=== PATIENT | male | born 1960 | race Caucasian/White ===

== ENCOUNTER → 2018-05-19 09:00 | Outpatient (CLI) | payer BC ==
[2009-12-23 12:00] VITALS: BMI 15.7
--- NOTE | 2018-05-24 14:39 | ST ---
PATIENT:LAVON PAYTON MEDICAL RECORD: [id number] SEX: M LOCATION:[facility] ORDER #: ADMISSION DATE: 05/19/18 AGE OF PATIENT: 57 REFERRING PHYSICIAN: INTERPRETING PHYSICIAN: CORDELIA BLANDON MD DATE OF SERVICE: 05/19/2018 PROCEDURE: Nuclear stress test. INDICATION: Chest pain, abnormal ECG. TECHNIQUE: He was exercised on standard Humberto protocol for 10 minutes achieving greater than 85% max target heart rate response with 31 mCi of sestamibi injected at peak stress, 10 mCi were used previously for rest images. FINDINGS: Gated SPECT reveals a preserved ejection fraction of 57% with good wall motioning and thickening and brightening throughout all segments. SPECT imaging Cardiolite is used as myocardial perfusion agent. There are definite reversible changes inferiorly. This includes the basal, mid, apical inferior segments. The degree of reversibility is [id number]. The amount of myocardium involved is moderate. OVERALL IMPRESSION: 1. This is an abnormal nuclear stress test with definite reversibility inferiorly. 2. Gated SPECT reveals a preserved ejection fraction greater than 50% in this patient with ongoing symptomatology. The current scan does suggest the presence of hemodynamically significant coronary artery disease with ongoing symptomatology. We would proceed with coronary angiography as followup study. TRANSINT:[id number] Voice Confirmation ID: [id number] DOCUMENT ID: [id number] CORDELIA BLANDON MD at 1439 CC: MIS AHUMADA [id number] DICTATION DATE: 05/19/181913 BOX CAR BRACER: 05/20/18 1402 DEP CLI 05/19/18 [place] [id number] [place] [id number]
== END | disposition home or self-care (01) ==
LOC: D.HCCARDIO 09:00
PROVIDERS: ATTEND Internal Medicine Interventional Cardiology
DX: R07.9 Chest pain, unspecified (principal)

== ENCOUNTER 2018-06-01 12:09 | Outpatient (CLI) | payer BC ==
--- NOTE | ~2018-06-01 | HEMODYNAMI ---
PATIENT:LAVON PAYTON MEDICAL RECORD: [id number] : 64 LOCATION:D[facility] ADMISSION DATE: 06/01/18 Generatedon:06/01/201814:57 Patient name: LAVON PAYTON Patient #: [id number] SSN: : 1960 Date of study: 06/01/2018 Page: Of Hemodynamic Procedure Report Patient Data Patient Demographics Procedure consent was obtained First Name: LAVON Gender: Male Last Name: TATA : 1960 Middle Initial: A Age: 57 year(s) Patient #: [id number] Race: Unknown Additional ID: [id number] Contact details Address: [address] [place] [address] State: [place] City: [place] Zip code: [address] Past Medical History Allergies: No known allergies Admission Admission Data Admission Date: 06/01/2018 Admission Time: 12:09 Height (in.): 73 BSA: 1.84 (m2) Height (cm.): 185.42 BMI: 18.32 (kg/m2) Weight (lbs.): 138.89 Weight (kg.): 63 Lab Results Lab Result Date: 06/01/2018 Lab Result Time: 0:00 Biochemistry Name Units Result Min Max BUN mg/dl 12 --(-*--)-- 7 18 Creatinine mg/dl 1.1 --(--*-)-- 0.6 1.3 CBC Name Units Result Min Max Hematocrit % 45.6 --(-*--)-- 42 54 Hemoglobin g/dl 15.5 --(-*--)-- 13.5 17.5 Procedure Procedure Types Cath Procedure Diagnostic Procedure C [facility] w/Coronaries Procedure Description Procedure Date Procedure Date: 06/01/2018 Procedure Start Time: 14:46 Procedure End Time: 14:56 Procedure Staff Name Function Lamberto Gillis MD Performing Physician Bella Hernandez RT Monitor Kip Finnegan RT Scrub Jens Fong RT Clinical Pharmacy Manager Yvan Guevara RN Nurse Procedure Data Cath Procedure Fluoroscopy Diagnostic fluoroscopy Total fluoroscopy Time: 1.6 time: 1.6 min min Diagnostic fluoroscopy Total fluoroscopy dose: 171 dose: 171 mGy mGy Contrast Material Contrast Material Type Amount (ml) Isovue 300 51 Entry Location Entry Primary Successful Side Size Upsize Upsize Entry Closure Hopkins ccessful Closure Location (Fr) 1 (Fr) 2 (Fr) Remarks Device Remarks Radial Right 6 Fr Mechanical artery Short Compression Estimated blood loss: 5 ml Diagnostic catheters Device Type Used For End Catheter Placement DIAGNOSTIC Jelm 110cm 5 Procedure Fr catheter ([id number]) Procedure Complications No complications Procedure Medications Medication Administration Route Dosage 0.9% NaCl I.V. 100 ml/hr Oxygen etCO2 Nasal cannula 2 l/min Heparin Flush Bag added to field 2 bags (1000units/500ml NS) Lidocaine 2% added to field 20 Radial Cocktail added to field 1 syringe (Verapomil 2mg/Nitro 400mcg/Heparin 1500units) Versed I.V. 2 mg Fentanyl I.V. 100 mcg Radial Cocktail I.A. 1 syringe (Verapomil 2mg/Nitro 400mcg/Heparin 1500units) Hemodynamics Rest BSA: 1.84 (m2) HGB: 15.5 (g/dl) O2 Consumption: Estimated: 210.63 (ml/min) O2 Co nsumption indexed: Estimated:114.47 (ml/min/m) Heart Rate: 59 (bpm) Pressure Samples Time Site Value (mmHg) Purpose Heart Use Rate(bpm) 14:51 LV 113/1,7 EDP 71 Gradients Valve Time Site Site Mean SEP/DFP Peak To Heart Use 1 2 (mmHg) (sec/min) Peak Rate (mmHg) (bpm) Aortic 14:51 LV AO 78 Snapshots Pre Cath Intra NCS Post Cath Vital Signs Time Heart Resp SPO2 etCO2 NIBP (mmHg) Rhythm Pain Sedation Rate (ipm) (%) (mmHg) Status Level (bpm) 14:36:13 57 14 100 30.4 145/77(124) NSR 0 (11) 10(A) , No pain 14:40:27 56 13 99 20.8 120/74(91) NSR 0 (11) 10(A) , No pain 14:44:33 58 12 97 19.3 112/71(85) NSR 0 (11) 10(A) , No pain 14:48:35 61 13 96 9.6 116/74(91) NSR 0 (11) 10(A) , No pain 14:52:40 69 12 97 33.4 107/66(81) NSR 0 (11) 9(A) , No pain 14:56:42 65 11 98 28.2 106/65(88) NSR 0 (11) 9(A) , No pain Medications Time Medication Route Dose Verified Delivered Reason Notes Effectiveness by by 14:35:19 0.9% NaCl I.V. 100 Yvan Yvan Per ml/hr Ismael Guevara physician RN RN 14:35:29 Oxygen etCO2 2 l/min Yvan Yvan for low 02 Nasal Lorigan Clarissaigan sats cannula RN RN 14:35:38 Heparin Flush added 2 bags Yvan Yvan used for Bag to Lorigan Lorigan procedure (1000units/500ml field RN RN NS) 14:35:54 Lidocaine 2% added 20ml Yvan Yvan for local to vial Lorigan Lorigan anesthetic RN RN 14:36:04 Radial Cocktail added 1 Yvan Yvan used for (Verapomil to syringe Lorigan Lorigan procedure 2mg/Nitro RN RN 400mcg/Heparin 1500units) 14:46:36 Versed I.V. 2 mg Yvan Yvan for sedation Ismael Guevara RN RN 14:46:46 Fentanyl I.V. 100 mcg Yvan Yvan for sedation Ismael Guevara RN RN 14:49:53 Radial Cocktail I.A. 1 Yvan Lamberto for (Verapomil syringe Lorigan Carlin vasodilation 2mg/Nitro MANSOOR PAYNE 400mcg/Heparin 1500units) Procedure Log Time Note 14:15:35 Jens Fong RT(R) sent for patient. Start room use. 14:17:24 Signed procedure consent form obtained from patient. 14:17:25 Diagnostic Cath status Elective 14:17:26 Time tracking: Regular hours (M-F 7:00 - 5:00) 14:17:29 Plan of Care:Hemodynamics will remain stable., Cardiac rhythm will remain stable., Comfort level will be maintained., Respiratory function will remain adequate., Patient/ family verbilizes understanding of procedure., Procedure tolerated without complication., Recovers from procedure without complications.. 14:18:42 H&P Date Dictated: 05/12/2018 Within 30 days and on chart., H&P Addendum completed by physician on day of procedure. (MUST COMPLETE FOR ALL OUTPATIENTS). 14:18:46 Patient allergic to No known allergies 14:18:59 Patient Height : 73 inches 14:19:02 Patient Weight : 138.89 lbs 14:25:37 Patient received from Pre/Post Procedure Room to CCL 2 Alert and oriented. Tansferred to table in Supine position. 14:25:40 Warm blankets applied, and forrest hugger turned on for patient comfort. 14:25:41 Correct patient and procedure confirmed by team. 14:25:41 ECG and BP/O2 sat monitors applied to patient. 14:35:01 Vital chart was started 14:35:02 Baseline sample Acquired. 14:35:08 Rhythm: sinus bradycardia 14:35:09 Full Disclosure recording started 14:35:09 Pre-procedure instructions explained to patient. 14:35:10 Pre-op teaching completed and patient verbalized understanding. 14:35:12 Family in patients room. 14:35:13 Patient NPO since Midnight. 14:35:15 Is patient on blood thinner?No 14:35:17 Patient diabetic? No. 14:35:19 0.9% NaCl 100 ml/hr I.V. was administered by Yvan Guevara RN; Per physician; 14:35:22 Previous problem with sedation/anesthesia? No ? 14:35:23 Snore? No 14:35:24 Sleep apnea? No 14:35:24 Deviated septum? No 14:35:29 Oxygen 2 l/min etCO2 Nasal cannula was administered by Yvan Guevara RN; for low 02 sats; 14:35:31 Sticks out tongue? Yes 14:35:33 Airway obstruction? No ? 14:35:38 Heparin Flush Bag (1000units/500ml NS) 2 bags added to field was administered by Yvan Guevara RN; used for procedure; 14:35:38 Dentures? Yes OUT 14:35:42 Modified Nixon's test Ulnar < 7 seconds 14:35:45 Patient pain scale 0/10 ?. 14:35:47 IV patent on arrival in left hand with 0.9% NaCl at [facility]. 14:35:54 Lidocaine 2% 20ml vial added to field was administered by Yvan Guevara RN; for local anesthetic; 14:36:04 Radial Cocktail (Verapomil 2mg/Nitro 400mcg/Heparin 1500units) 1 syringe added to field was administered by Yvan Guevara RN; used for procedure; 14:36:50 Lab Result : BUN 12 mg/dl 14:36:50 Lab Result : Creatinine 1.1 mg/dl 14:36:50 Lab Result : Hemoglobin 15.5 g/dl 14:36:50 Lab Result : Hematocrit 45.6 % 14:36:53 Lab results completed and on chart. 14:36:57 Right Radial & Right Groin area was prepped with chlora-prep and draped in sterile fashion 14:36:58 Alarms reviewed by R. N. 14:36:59 Sharps counted by scrub and verified by R.N. 14:37:01 Use device set Radial Dx or PCI 14:37:02 ACIST Syringe (43326) opened to sterile field. 14:37:19 Bag Decanter (2002S) opened to sterile field. 14:37:45 ACIST Hand Control (11724) opened to sterile field. 14:37:46 ACIST Manifold (34788) opened to sterile field. 14:37:46 Tegaderm 4 x 4 (1626W) opened to sterile field. 14:37:47 Medline Cath Pack ([id number]) opened to sterile field. 14:37:48 DIAGNOSTIC WIRE .035 260cm J wire (674056) opened to sterile field. 14:37:49 MBrace Wrist Support ([id number]) opened to sterile field. 14:37:50 SHEATH 6FR Slender (801060) opened to sterile field. 14:42:57 --------ALL STOP TIME OUT------ 14:42:57 Final Timeout: patient, procedure, and site verified with staff and physician. All members of the team are in agreement. 14:42:59 Right Radial & Right Groin site verified by team. 14:43:02 Maximum allowable Isovue 300 dose 300ml. Physician notified. (300ml for normal creatinines. For patients with creatinine of 1.7 or higher multiply weight(kg) x 5 divided by creatinine.) 14:43:06 Fire Safety Assessment: A--An alcohol-based skin anteseptic being used preoperatively., C--Open oxygen or nitrous oxide is being used., D--An ESU, laser, or fiber-optic light is being used. 14:43:11 Physical assessment completed. ASA score P 2 - A patient with mild systemic disease as per Lamberto Gillis MD. 14:43:14 Sedation plan: IV Moderate Sedation Medication:Versed, Fentanyl 14:45:51 Procedure started. 14:46:33 Local anesthetic to right radial artery with Lidocaine 2% by Lamberto Gillis MD.INITIAL ACCESS ONLY 14:46:36 Versed 2 mg I.V. was administered by Yvan Guevara RN; for sedation; 14:46:36 Zero performed for pressure channel P1 14:46:46 Fentanyl 100 mcg I.V. was administered by Yvan Guevara RN; for sedation; 14:49:19 A 6 Fr Short sheath was inserted into the Right Radial artery 14:49:53 Radial Cocktail (Verapomil 2mg/Nitro 400mcg/Heparin 1500units) 1 syringe I.A. was administered by Lamberto Gillis MD; for vasodilation; 14:49:56 A DIAGNOSTIC Jelm 110cm 5 Fr catheter (496249) was advanced over the wire and used for Procedure. 14:50:40 LV gram done using FRIEDMAN 14:50:42 Injector settings: Ml/sec: 5, Volume: 15, 14:51:10 LV hemodynamics recorded. 14:51:25 EF : 55 % 14:51:51 RCA angiography performed. 14:53:29 LCA angiography performed. 14:54:20 Catheter removed. 14:54:26 TR BAND Standard ([id number]) opened to sterile field. 14:54:33 Procedure ended.(Physican Out) 14:54:59 Fluoroscopy time 01.60 minutes. 14:55:03 Fluoroscopy dose: 171 mGy 14:55:03 Flurop Dose total: 171 14:55:07 Contrast amount:Isovue 300 51ml. 14:55:14 Sheath removed intact; hemostasis achieved with Mechanical Compression to the Right Radial artery. 14:55:18 Sharps counted by scrub and verified by R.N. 14:55:20 TR band inflated with 10cc of air. 14:55:51 Post-procedure physical assessment completed. ASA score P 2 - A patient with mild systemic disease as per Lamberto Gillis MD. 14:55:54 Post procedure rhythm: sinus rhythm 14:55:55 Estimated blood loss: 5 ml 14:55:57 Post procedure instruction explained to patient.Patient verbalizes understanding. 14:55:57 Patient needs reinforcement of post procedure teaching. 14:56:23 Procedure and supply charges have been captured, reviewed, submitted and are correct. 14:56:25 Procedure Complication : No complications 14:56:29 Vital chart was stopped 14:56:30 See physician's report for complete and final results. 14:56:34 Report given to Pre/Post Procedure Room. 14:56:37 Patient transfered to Pre/Post Procedure Room with Bed. 14:56:42 Procedure ended. 14:56:42 Full Disclosure recording stopped 14:56:48 End room use (Document Last) Device Usage Item Name Manufacture Quantity Catalog Hospital Part Current Minimal Lot# / Number Charge Number Stock Stock Serial# Code ACIST Acist 1 44922 874275 953485 709982 20 Syringe Medical (67366) Systems Inc Bag Microtek 1 2001S 562063 30982 620503 5 Decanter Medical Inc. () ACIST Hand Acist 1 59315 870298 744265 366672 5 Control Medical (42922) Systems Inc ACIST Acist 1 90294 759753 042994 812855 5 Manifold Medical (31650) Systems Inc Tegaderm 4 3M 1 1626W 397016 703395 564460 5 x 4 (1626W) Medline Medline 1 [id number] 201792 09365 815057 5 Cath Pack ([id number]) DIAGNOSTIC St Gigi 1 658612 590921 132985 514798 30 WIRE .035 260cm J wire (464474) MBrace Advanced 1 140-0250-00 099141 12347 889520 5 Wrist Vascular Support Dynamics ([id number]) SHEATH 6FR Terumo 1 [id number] 977187 725581 430668 5 Slender (80-1060) DIAGNOSTIC Terumo 1 40-5933 672275 916354 371892 5 Jelm 110cm 5 Fr catheter (758127) TR BAND Terumo 1 [id number] 934823 778176 129117 40 Standard ([id number]) Signature Audit [place] Stage Time Signature Unsigned Intra-Procedure 06/01/2018 Bella Hernandez 2:57:40 PM RT(R) Signatures Monitor : Bella Hernandez Signature : RT Date : Time : [address] [place] [address]
[2018-06-01 12:32] VITALS: BP 92/73; BMI 17.2
[2018-06-01 12:55] LABS: BASOPHILS 0.2 % (0-2); EOSINOPHILS 1.8 % (0-7); HEMATOCRIT 45.6 % (42.0-54.0); HEMOGLOBIN 15.5 g/dL (13.5-17.5); IMMATURE GRANULOCYTES 0.1 % (0-5); LYMPHOCYTES 30.2 % (15-50); MCH 29.9 pg (26.0-34.0); MEAN PLATELET VOLUME 10.9 fL (7.4-10.4); MONOCYTES 7.5 % (2-11); NEUTROPHILS 60.2 % (40-80); PLATELET COUNT 197 10x3/uL (130-400); RBC 5.18 10x6/uL (4.20-6.10); RDW 12.9 % (11.5-14.5); WBC 8.3 10x3/uL (4.8-10.8)
[2018-06-01 13:03] LABS: ANION GAP 11.9 mmol/L (8-16); CALCIUM 9.7 mg/dL (8.5-10.1); CARBON DIOXIDE 29.8 mmol/L (21.0-32.0); CREATININE - SERUM 1.1 mg/dL (0.6-1.3); POTASSIUM - SERUM 3.7 mmol/L (3.5-5.1)
--- NOTE | 2018-06-01 15:05 | NUR ---
PT RECEIVED VIA STRETCHER FROM [employer]EARCH SCIENTIST FOR RECOVERY. PT DROWSY BUT VERBALLY AROUSABLE. TR BAND AND IMMOBILIZER TO R WRIST, DRESSING CDI NO BLEEDING OR HEMATOMA NOTED. R ARM PINK AND WARM, CAP REFILL BRISK. HR SINUS HITESH 51, BP 116/74, O2 SAT 99 ON 2L/NC. CALL LIGHT IN REACH
--- NOTE | 2018-06-01 15:25 | NUR ---
PT SLEEPING COMFORTABLY, TR BAND IN PLACE, DRESSING CDI NO BLEEDING OR HEMATOMA NOTED. FAMILY AT BEDSIDE, HR 50, BP 112/71. CALL LIGHT IN REACH
--- NOTE | 2018-06-01 15:59 | NUR ---
PT SITTING UP EATING SANDWICH. DENIES PAIN OR NEEDS AT THIS TIME. R WRIST W TRB IN PLACE. NO BLEEDING OR HEMATOMA NOTED. CALL LIGHT IN REACH
--- NOTE | 2018-06-01 16:25 | NUR ---
PT SITTING UP IN BED, DENIES PAIN OR NEEDS. TOLERATED SANDWICH W/O NAUSEA. 4CC AIR REMOVED FROM TR BAND, NO BLEEDING OR SWELLING NOTED. CALL LIGHT IN REACH, FAMILY AT BEDSIDE. VSS
--- NOTE | 2018-06-01 16:45 | NUR ---
4 ADD'L CC AIR REMOVED FROM TR BAND NO BLEEDING OR SWELLING NOTED. IV REMOVED W CATH INTACT, MONITORS AND O2 REMOVED. PT UP TO DRESS FOR DISCHARGE
--- NOTE | 2018-06-01 17:00 | NUR ---
REMAINING AIR AND TR BAND REMOVED W/O BLEEDING OR SWELLING NOTED. DISCHARGE INSTRUCTIONS REVIEWED W PT AND QUESTIONS ANSWERED, HE VERBALIZED UNDERSTANDING.
--- NOTE | 2018-06-01 17:05 | NUR ---
PT DISCHARGED VIA WC TO PRIVATE VEHICLE WITH ALL BELONGINGS
--- NOTE | 2018-06-06 08:49 | OP ---
PATIENT NAME: LAVON PAYTON MEDICAL RECORD: [id number] :64 LOCATION:D.[facility] ADMISSION DATE: SURGEON: PATRICIA RAY MD DATE OF OPERATION: 06/01/2018 PROCEDURE: Left heart catheterization, selective coronary angiography, right femoral artery approach. CATHETERS: A 5-Serbian sheath, 5/4 left and right Abhinav, 5/4 pig. The procedure was well tolerated. The patient was returned to the jacobs. Sheath was removed. ExoSeal device was placed. FINDINGS: Left ventriculography in 30-degree FRIEDMAN view; normal wall motion and normal systolic function. CORONARY ANATOMY: LEFT MAIN: Left main is free of disease. LAD: Free of disease in the diagonal system. CIRCUMFLEX: Free of disease in the marginal system. RIGHT CORONARY ARTERY: Dominant artery, gives rise to PDA, free of disease. IMPRESSION: Normal LV systolic function. Normal coronary anatomy. TRANSINT:[id number] Voice Confirmation ID: [id number] DOCUMENT ID: [id number] PATRICIA RAY MD at 0849 CC: [id number] DICTATION DATE: 06/01/18 1500 TUBE MACHINE OPERATOR HELPER: 06/01/181916 DEP CLI 06/01/18 [facility] [address] [place] [address]
== END 2018-06-01 17:00 | disposition home or self-care (01) ==
LOC: D.CATH 12:09
PROVIDERS: ATTEND Internal Medicine Interventional Cardiology
DX: R07.9 Chest pain, unspecified (principal); R94.39 Abnormal result of other cardiovascular function study; Z01.812 Encounter for preprocedural laboratory examination